=== PATIENT | female | born 1960 | race Caucasian/White ===

== ENCOUNTER 2017-12-28 12:43 | Emergency (ER) | payer BC ==
[~2017-12-28] VITALS: Ht 170.2 cm; Wt 81.6 kg
--- NOTE | 2017-12-28 13:32 | Emergency Room Report ---
History of Present Illness General Chief Complaint: Lower Extremity Injury Source: Patient Present Illness HPI 57-year-old female patient presents ER complaining of right big toe pain status post injury yesterday. Reports that [place] she accidentally tripped and she stubbed her toe on something. Denies hitting her head or loss consciousness. Reports put iodine on her toe for treatment. Reports pain with ambulation. Reports nail slightly moved, states "It will probably fall off, thats Ok" patient states that she just wants to "make sure it is not fractured". Allergies: Coded Allergies: No Known Allergies (Unverified , 12/28/17) Patient History Past Medical History: see triage record Last Menstrual Period: NA Now: No Reviewed Nursing Documentation: PMH: Agreed; PSxH: Agreed Nursing Documentation-PMH Past Medical History: No History, Except For Hx Hypertension: Yes Review of Systems All Other Systems: negative except mentioned in HPI Physical Exam Vital Signs Date Time Temp Pulse Resp B/P (MAP) Pulse Ox O2 Delivery O2 Flow Rate FiO2 12/28/17 12:48 98.1 95 16 153/103 96 Room Air 98.1 Sp02 EP Interpretation: reviewed, normal General Appearance: well appearing, no apparent distress, alert, GCS 15, non- toxic Head: normocephalic, atraumatic Eyes: bilateral eye normal inspection, bilateral eye PERRL ENT: hearing grossly normal, normal pharynx, no angioedema, normal voice, uvula midline, moist mucus membranes Neck: full range of motion Respiratory: lungs clear, normal breath sounds, no rhonchi, no respiratory distress, no accessory muscle use, no wheezing, speaking full sentences Cardiovascular #1: regular rate, rhythm, no edema Cardiovascular #2: 2+ dorsalis pedis (R), 2+ dorsalis pedis (L) Musculoskeletal: back normal, gait/station normal, non-tender, decreased range of motion - secondary to pain, swelling - ecchymosis of right big toe, other - NVI, sensation intact to light touch, cap refill < 2 seconds; nail slightly rotated laterally attached, cuticle intact, no subungual hematoma, tender - right big toe a distal phalanx Neurologic: alert, oriented x3, responsive, motor strength/tone normal, sensory intact Psychiatric: mood/affect normal Skin: no rash Medical Decision Making PA Attestation Dr. Gutierres is my supervising Physician whom patient management has been discussed with. Diagnostic Impression: Primary Impression: Toe injury Additional Impression: Nail avulsion of toe ER Course Pt. presents to the ED c/o toe pain. Ddx considered but are not limited to fracture, sprain, strain, contusion, dislocation. No erythema, no warmth to touch, no fever, nontoxic appearing, low suspicion for septic joint. Vital signs: are WNL, pt. is afebrile Ordered X-ray. ER COURSE patient declined pain medication. An X-ray of the right foot shows e fracture. Preliminary reading. Post op shoe applied to the right foot and was checked afterwards by me showing good alignment and support with distal neurovascular functioning intact. Toenail of the toe appears slightly avulsed laterally, still attached to nail bed, no subungual hematoma, cuticle intact, no bleeding. Discussed option with the patient to have toenail removed to evaluate nail bed, patient declined, states she will follow up with key worker, will provide contact information. toe wrapped in gauze for protection against further injury. Patient declined crutches. Patient instructed on RICE method: rest, ice, compression, elevation. Patient instructed on rest, ice and heat. Patient instructed to be WBAT Contact information for orthopedic urgent care provided, follow-up with urgent care if unable to followup with primary care provider and get referral to business control specialist. Followup with primary care provider. Discuss referral to ortho/pain management/ PT/podiatry as needed. Discuss further imaging with MRI/CT as needed. DISCHARGE: -Rx provided for Tylenol for pain symptoms. At this time pt. is stable for d/c to home. Patient is resting comfortably, in no acute distress, nontoxic appearing, talking without difficulty. Will provide printed patient care instructions, and any necessary prescriptions. Patient instructed to follow with primary care provider in 3 - 5 days and to request further follow-up as needed. Care plan and follow up instructions have been discussed with the patient prior to discharge. Take medications as directed. Patient questions asked and answered. Patient reports understanding and agreement to treatment plan. ER precautions given, patient instructed to return to ER immediately for any new or worsening of symptoms. - Please note that this Emergency Department Report was dictated using nubelo technology software, occasionally this can lead to erroneous entry secondary to interpretation by the dictation equipment. Other X-Ray Diagnostic Results Other X-Ray Diagnostic Results : X-Ray ordered: right foot # of Views/Limited Vs Complete: 3 View Indication: Pain EP Interpretation: Yes PA Xray: Interpretation reviewed, by supervising MD, and agrees with findings. Interpretation: no dislocation, no soft tissue swelling, no fractures Impression: No acute disease CLARENCE Scribdemarc[employer] Text Shan LIMA-Alyssa Last Vital Signs Date Time Temp Pulse Resp B/P (MAP) Pulse Ox O2 Delivery O2 Flow Rate FiO2 12/28/17 12:48 98.1 95 16 153/103 96 Room Air 98.1 Disposition: HOME, SELF-CARE Condition: Stable Scripts Acetaminophen* (TYLENOL EXTRA STRENGTH*) 500 Mg Tablet 500 MG ORAL Q8H PRN for Prn Headache/Temp > 101, #30 TAB 0 Refills Prov: Nilson Jackson 12/28/17 Patient Instructions: Foot Contusion, Nail Avulsion, Turf Toe Additional Instructions: Followup with key worker, contact to schedule appointment, contact information provided. Patient instructed to follow up with primary care provider and discuss further referral to orthopedics. Patient instructed on RICE method: rest, ice, compression, elevation. Patient instructed to WBAT. Take medications as directed. Patient questions asked and answered. ER precautions given, patient instructed to return to ER immediately for any new or worsening of symptoms. Nilson Jackson Dec 28, 2017 13:32
[2017-12-28] MEDS ORDERED: TYLENOL EXTRA500 MG ORAL (13:45)
[2017-12-28 14:00] VITALS: BP 153/103
--- NOTE | 2017-12-28 15:13 | Diagnostic Imaging Report ---
Indication: Trauma to the first digit Technique: 3 views right foot Comparison: none Findings: No acute fractures. No dislocations. The joint spaces are preserved. There is hallux valgus and metatarsus adductus. There is mild degenerative change of the first metatarsophalangeal joint. There is mild hammertoe deformity of second through fifth digits no radiopaque foreign body demonstrated. Impression: No acute process
== END 2017-12-28 14:00 | disposition home or self-care (01) ==
LOC: EMR 13:50
DX: S91.201A Unspecified open wound of right great toe with damage to nail, initial encounter (principal); I10 Essential (primary) hypertension; W22.09XA Striking against other stationary object, initial encounter; Y92.832 Beach as the place of occurrence of the external cause
CPT/HCPCS: 99283